=== PATIENT | male | born 1995 | race African-American/Black ===

== ENCOUNTER → 2023-01-13 | Outpatient (CLI) | payer OTHER | LOC: M PLAIMG 13:19 | PROVIDERS: ATTEND Student in an Organized Health Care Education/Training Program | DX: M25.311 Other instability, right shoulder (principal) ==

== ENCOUNTER 2023-08-10 20:24 | Emergency (ER) | payer OTHER ==
[~2023-08-10] VITALS: Ht 172.7 cm; Wt 88.2 kg
[2023-08-10] MEDS ORDERED: FLUORESCEIN OPHTH 1MG STRIP OS ONE (21:45)
[2023-08-10] MEDS ORDERED: TETRACAINE 0.5% OPHTH SOLN 4ML OS ONE (21:45)
[2023-08-10 22:15] VITALS: BP 138/74; TEMP 98.3; O2SAT 97
[2023-08-10] MEDS ORDERED: OCUF0.25 OP (22:40)
[2023-08-10] MEDS ORDERED: OFLOXACIN 0.3 % (OCUFLOX) OPTH SOL 5ML OS STA (22:41)
== END 2023-08-10 23:34 | disposition home or self-care (01) ==
LOC: M ED 20:24
DX: H57.12 Ocular pain, left eye (principal); Z79.899 Other long term (current) drug therapy